=== PATIENT | female | born 1945 | race Caucasian/White ===

== ENCOUNTER 2025-06-25 09:15 | Emergency (ER) | payer MEDICARE, SELFPAY ==
[2025-06-25] VITALS (14 sets, daily range): BP systolic 133–162; BP diastolic 62–79; PULSE 75; RESP 20; TEMP 36.8; O2SAT 99–100
--- NOTE | ~2025-06-25 | CT_ITS ---
CT head without contrast Indication: Status post fall Technique: Serial scans were obtained through the brain without the administration of contrast. Dose reduction technique was used on this scan by utilizing automated exposure control and iterative recon struction technique. The dose-length product (DLP) was 681.00 mGy-cm. Findings: There is no evidence of intracranial hemorrhage, mass lesion, or acute infarct. The ventri cles and subarachnoid spaces are dilated, consistent with mild atrophy. There is no evidence of maria del carmen a, mass effect or midline shift. The visualized paranasal sinuses and mastoid air cells are clear. Impression: No intracranial hemorrhage, mass, or acute infarct. Probable generalized atrophy. Questionable element of normal pressure hydrocephalus. Reviewed, dictated and finalized at location M. Impression: No intracranial hemorrhage, mass, or acute infarct. Probable generalized atrophy. Questionable element of normal pressure hydroceph alus.
--- NOTE | ~2025-06-25 | XR_ITS ---
Clinical Indication: Weakness, shingles PA and lateral views of the chest: Comparison: None Findings: The lungs are clear, without evidence of focal consolidation or pleural effusion. Small stephan cified right hilar lymph nodes are present. Cardiomediastinal silhouette is within normal limits. Bon es and soft tissues are unremarkable. Impression: Clear lungs. Calcified right hilar lymph nodes. Reviewed, dictated and finalized at location . Impression: Clear lungs. Calcified right hilar lymph nodes.
--- OUTSIDE RECORDS SUMMARY | 2025-06-25 10:30 | XMS_ITS | Clinical Summary ---
Author Organization [facility] [address] [facility] lt Address [address] [place] [address] Care Team Providers Care Librarian Special Collections Name Role Phone Dennise Huerta NP Primary Care Provider [phone] Allergies Active Allergy Reactions Criticality Noted Date Comments Pollen Extracts Other (See comments) Low 06/16/2024 Medications hydroCHLOROthia zide (MICROZIDE) 12.5 mg capsule Take 1 capsule (12.5 mg total) by mouth daily Active metoprolol tartrate (LOPRESSOR) 50 mg immediate release tablet Take 1 tablet (50 mg total) by mouth 2 (two) times a day Active amLODIPine (NORVASC) 5 mg tablet Take 1.5 tablets (7.5 mg total) by mouth daily 3 Active aspirin 81 mg enteric coated tablet Take 1 tablet (81 mg total) by mouth daily 3 Active memantine (NAMENDA) 10 mg tablet Take 1 tablet (10 mg total) by mouth 2 (two) times a day Active lidocaine-menth ol 4-1 % adhesive patch,medicated Apply 4 % topically daily as needed Active escitalopram (LEXAPRO) 20 mg tablet Take 1.5 tablets (30 mg total) by mouth daily Active Nystop powder 4 Active levomefolate calcium (L-Methylfolate ) 15 mg tablet Take 1 tablet every day by oral route. Active carbidopa-levod opa (SINEMET) 25-100 mg per tablet TAKE ONE TABLET BY MOUTH THREE TIMES DAILY 90 tablet 4 4 Active acidophilus-pec tin, citrus 100 million cell-10 mg capsule Take by mouth Activ e rivastigmine (EXELON) 9.5 mg/[address] 9.5 mg on the skin daily for 24 hours 30 patch 2 5 Active busPIRone (BUSPAR) 10 mg tablet TAKE ONE TABLET BY MOUTH TWICE DAILY 60 tablet 4 5 Active doxycycline (VIBRAMYCIN) 100 mg capsule Take 1 tablet/capsule (100 mg total) by mouth 2 (two) times a day 20 capsule 5 Active methylPREDNISol one (MEDROL DOSEPACK) 4 mg Dosepack Take as directed on package 1 packet 5 06/29/20 25 Active cetirizine (ZyrTEC) 10 mg tablet Take 1 tablet (10 mg total) by mouth daily 30 tablet 5 07/23/20 25 Active Active Problems Problem Noted Date Diagnosed Date Tremors of nervous system 11/28/2024 Overview (11/28/2024): R sinemet tid for tremors per neurology [facility] clinic Parkinsonism, unspecified Parkinsonism type 11/10 Assessment & Plan (11/28/2024 2:12 PM AIRPORT LOCATION MANAGER): Parkinson like symptoms. Currently on Sinemet. They also have her on an Exelon patch. Depression, recurrent 11/28/2024 Assessment & Plan (11/28/2024 2:12 PM AIRPORT LOCATION MANAGER): Slightly improved today. Continue current medication. Escitalopram 30 mg once daily. BuSpar 7.5 mg once daily. I think she is on the correct medication. I do not wish to make any changes for her today. She has a follow-up with the memory clinic in January. 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 Discussed findings with the patient and her family, recommended compression therapy for any residual swelling or pain, given her underlying Lewy body dementia would not recommend any interventional therapy. Can follow up as needed. Candidal intertrigo 06/30/2023 Allergic rhinitis 08/11/2022 Lewy body dementia without behavioral disturbanc e 06/12/2022 Overview (06/12/2022): Per patient and caregiver, symptoms were 1st noted approximately 1 year ago in July 2021, patient formally diagnosed with Lewy Body dementia in March of 2022 Assessment & Plan (11/28/2024 2:14 PM AIRPORT LOCATION MANAGER): Diagnosed 3 years ago. The last 6 months have been difficult for them. Currently lives in [facility]. Came to see a new PCP today. However they may make the decision to stay with the BOOKING OFFICER at the facility. They do see the [facility] for the dementia. Assessment & Plan (04/26/2024 12:45 PM CDT): Continue donepezil/Aricept and memantine/Namenda. Continue escitalopram/Lexapro 30 mg. Patient states current mood is okay despite answering 5/8 items on the GDS. CS believes she is in good spirits and is involved with support groups, adventist, and friends. Patient may get another vision examination to make sure her glasses are the right prescription. CS to see if patient has more physical therapy/occupational therapy orders. If not, will order more physical therapy and occupational therapy at [place]. Follow-up with Dr. Jimenez scheduled for 01/2025. Assessment & Plan (06/12/2022 4:44 PM CDT): Stable, recently diagnosed Per patient and caregiver, symptoms were 1st noted approximately 1 year ago in July 2021, patient formally diagnosed with Lewy Body dementia in March of 2022 Patient currently on Lexapro 10 mg daily for mood disturbance, as well as Prozac 20 mg daily Will start donepezil 5 mg nightly Patient reports recent weight loss, as well as diarrhea; will follow-up in 2 months to reassess and may increase to 10 mg nightly Hypertension, essential 06/12/2022 Assessment & Plan (11/28/2024 2:15 PM AIRPORT LOCATION MANAGER): Stable. Blood pressure is well-controlled on current medications include metoprolol amlodipine and hydrochlorothiazide Assessment & Plan (07/06/2024 12:12 PM CDT): Stable continue amlodipine 5 mg Assessment & Plan (06/12/2022 4:45 PM CDT): Stable, well controlled; blood pressure at target Continue hydrochlorothiazide 12.5 mg daily, metoprolol 50 mg b.i.d. Anemia 05/28/2022 Assessment & Plan (11/28/2024 2:10 PM AIRPORT LOCATION MANAGER): History of. Orders for labs today. Vitamin D deficiency 05/28/2022 Encounters Date Type Department Care Team Description 06/23/2025 9:44 AM CDT - 06/23/2025 1:51 PM CDT Emergency [facility] Emergency Department [address] [place] [address] Fall, initial encounter (Primary Dx) Discharge Disposition: Discharge to home or self care from Last 3 Months Immunizations Immunization Administration Dates Next Due Influenza, Unspecified 06/12/2022(Deferred: Nohelia ent Refused) Td, adsorbed 07/15/2005 Surgical History Surgery Date Site/Laterality Comments GALLBLADDER SURGERY HYSTERECTOMY Medical History Medical History Date Comments Epilepsy (HCC) Depression Hypertension Family History Medical History Relation Name Comments Heart attack Father Lung cancer Mother Relation Name Status Comments Father Mother Social History Tobacco Use Types Packs/Day Years Used Date Smoking Tobacco: Former Cigarettes Smokeless Tobacco: Never Tobacco Cessation:Counseling Given: No Comments:Stopped smoking in the 1970s PHQ-2 Answer Date Recorded PHQ-2 Total Score (If total score is 3 or more points, staff should administer the PHQ-9) 4 11/28/2024 PHQ-9 Answer Date Recorded PHQ-9 Total Score 15 11/28/2024 Personal Safety Answer Date Recorded Have you ever been in or are you currently in a harmful physical or emotional relationship or is someone making you feel afraid or unsafe? Denies 06/23/2025 Comments Unknown Sex and Gender Information Value Date Recorded Sex Assigned at Not on file Legal Sex Female 1:20 PM CDT Gender Identity Female 04/19/2024 2:36 PM CDT Sexual Orientation Not on file Obstetrics History Last Filed Vital Signs Vital Sign Reading Time Taken Comments Blood Pressure 161/77 06/23/2025 1:44 PM CDT Pulse 52 06/23/2025 1:44 PM CDT Temperature 36.4 C (97.6 F) 06/23/2025 9:50 AM CDT Respiratory Rate 14 06/23/2025 1:44 PM CDT Oxygen Saturation 99% 06/23/2025 1:44 PM CDT Inhaled Oxygen Concentration - - Weight 77.1 kg (170 lb) 06/23/2025 9:47 AM CDT Height 160 cm (5' 3) 01/23/2025 3:33 PM CDT Body Mass Index 30.11 01/23/2025 3:33 PM CDT Plan of Treatment Health Maintenance Due Date Last Done Comments Hepatitis C Screening 1945 Osteoporosis Screening-Bone Density Scan 1945 Hepatitis B Screening 1965 Pneumococcal vaccine 65+ (1 of 1 - PCV) 1997 Zoster Vaccine (1 of 2) 1997 DTaP/Tdap/Td Vaccine (1 - Tdap) 07/16/2005 5 Well Visit 65+ 2012 Influenza Vaccine (#1) 2025 Depression Screening 11/28/2025 11/28/2024, 11/28/2024, 06/12/2022 Fall Risk Assessment 11/28/2025 11/28/2024, 06/12/20 22 Procedures Procedure Name Priority Date/Time Associated Diagnosis Comments CT PELVIS WO CONTRAST ED 06/23/2025 12:[address] CERVICAL SPINE WO CONTRAST ED 06/23/2025 12:[address] FACIAL BONES WO CONTRAST ED 06/23/2025 12:[address] HEAD WO CONTRAST ED 06/23/2025 1 2:09 PM CDT EGFR STAT 06/23/2025 10:28 AM CDT DIFFERENTIAL AUTO STAT 06/23/2025 10: 28 AM CDT SEPSIS LACTATE WITH REFLEX Routine 06/23/2025 10:28 AM CDT COMPREHENSIVE METABOLIC PANEL STAT 06/23/2025 10:28 AM CDT CBC WITH AUTO DIFFERENTIAL STAT 06/23/2025 10:28 AM CDT from Last 3 Months Results * CT Pelvis WO Contrast (06/23/2025 12:09 PM CDT) Anatomical Region Laterality Modality Body N/A Computed Tomogra phy 06/23/2025 1:16 PM CDT Narrative 06/23/2025 1:22 PM CDT EXAM DESCRIPTION: CT PELVIS WO CONTRAST REASON FOR STUDY: Hip trauma, fracture suspected, no prior imaging Fall today, struck face, right eye swelling due to recent insect bite, has right hip pain, hx of dementia TECHNIQUE: CT scan of the pelvis performed without intravenous and without oral contrast using helical scanning technique. Reconstructed coronal and sagittal MPR images reviewed. All images stored on PACS. Automated exposure control was used as a dose optimization technique for this examination. COMPARISON: None available FINDINGS: The sensitivity for detection of solid visceral lesions is diminished without the use of intravenous contrast. URINARY: No visualized abnormality. GI: Not fully included in field of view. No visualized abnormality. PERITONEUM: Not fully included in field of view. No visualized abnormality. RETROPERITONEUM: Not fully included in field of view. No visualized abnormality. REPRODUCTIVE: No significant abnormality. VASCULATURE: Abdominal aorta not fully included in field of view. No visualized abnormality. MUSCULOSKELETAL: No significant abnormality. Moderately severe degenerative changes lumbosacral spine. Moderate changes both hips. OTHER: No other abnormality. IMPRESSION: No acute finding. THIS IS AN ELECTRONICALLY VERIFIED FINAL REPORT 06/23/2025 1:22 PM - Electronically signed by Tunde Thomas M.D. RB: ELENA Report ID: [id number] Reading Location: [id number] Procedure Note Tunde Thomas MD - 06/23/2025 EXAM DESCRIPTION: CT PELVIS WO CONTRAST REASON FOR STUDY: Hip trauma, fracture suspected, no prior imaging Fall today, struck face, right eye swelling due to recent insect bite, has right hip pain, hx of dementia TECHNIQUE: CT scan of the pelvis performed without intravenous and without oral contrast using helical scanning technique. Reconstructedcoronal and sagittal MPR images reviewed. All images stored on PACS. Automated exposure control was used as a dose optimization technique for this examination. COMPARISON: None available FINDINGS: The sensitivity for detection of solid visceral lesions is diminishedwithout the use of intravenous contrast. URINARY: No visualized abnormality. GI: Not fully included in field of view. No visualized abnormality. PERITONEUM: Not fully included in field of view. No visualizedabnormality. RETROPERITONEUM: Not fully included in field of view. No visualized abnormality. REPRODUCTIVE: No significant abnormality. VASCULATURE: Abdominal aorta not fully included in field of view. No visualized abnormality. MUSCULOSKELETAL: No significant abnormality. Moderately severe degenerative changes lumbosacral spine. Moderate changes both hips. OTHER: No other abnormality. IMPRESSION: No acute finding. THIS IS AN ELECTRONICALLY VERIFIED FINAL REPORT 06/23/2025 1:22 PM - Electronically signed by Tunde Thomas M.D. RB: ELENA Report ID: [id number] Reading Location: [place] [address] PROCEDURES Final Result * CT Cervical Spine WO Contrast (06/23/2025 12:09 PM CDT) Anatomical Region Laterality Modality Spine N/A Computed Tomogra phy 06/23/2025 1:01 PM CDT Narrative 06/23/2025 1:27 PM CDT EXAM DESCRIPTION: CT HEAD WO CONTRAST; CT FACIAL BONES WO CONTRAST; CT CERVICAL SPINE WO CONTRAST REASON FOR STUDY: Fall today, struck face, right eye swelling due to recent insect bite, has right hip pain, hx of dementia ; Facial trauma, blunt TECHNIQUE: CT of the head, facial bones and cervical spine without contrast. Images stored on PACS. Automated exposure control was used as a dose optimization technique for this examination. COMPARISON: None Head: No acute intracranial hemorrhage. No evidence of a large vascular territory acute infarction or CT evidence of vasogenic edema. No midline shift or mass effect. The ventricles and subarachnoid spaces are prominent indicating age-appropriate parenchymal volume loss. Scattered mild hypoattenuation in the periventricular and subcortical white matter is nonspecific but can be seen in the setting of chronic small vessel ischemic disease. There are atherosclerotic calcifications of the carotid siphons and V4 segments of the vertebral arteries. There is no acute calvarial fracture. Hyperostosis frontalis interna is noted. Facial bones: Bones: No acute facial bone fracture. Soft tissues: Right preseptal soft tissue swelling is nonspecific but could represent preseptal cellulitis in the appropriate clinical setting. Orbits: The globes are symmetric. Status post cataract surgery. No postseptal soft tissue swelling identified. Paranasal sinuses: Mild mucosal thickening of the ethmoid air cells and right maxillary sinus. Mastoids: No mastoid effusion. Other: No other significant abnormality. Cervical spine: Alignment: Normal. The craniocervical junction is unremarkable. Vertebral bodies: Normal in height without evidence of compression fracture. Intervertebral discs: Multilevel moderate degenerative disc disease with disc space height loss. Facet and uncovertebral joints: Multilevel moderate degenerative uncovertebral and facet arthropathy. Spinal canal: Moderate to severe spinal canal stenosis of C3-C4. Neural foramen: Severe left neural foraminal stenosis C3-C4. Soft tissues: No significant prevertebral edema. Azygous lobe. Left carotid atherosclerotic calcification. IMPRESSION: 1. No acute intracranial process. 2. No acute facial bone fracture. 3. No acute cervical spine fracture. 4. Mild right preseptal soft tissue swelling is nonspecific. No postseptal soft tissue swelling identified. 5. Moderate to severe spinal canal stenosis of C3-C4. THIS IS AN ELECTRONICALLY VERIFIED FINAL REPORT 06/23/2025 1:27 PM - Electronically signed by Miki Duran M.D. MM: MM Report ID: [id number] Reading Location: [id number] Procedure Note Miki Duran MD - 06/23/2025 EXAM DESCRIPTION: CT HEAD WO CONTRAST; CT FACIAL BONES WO CONTRAST; CT CERVICAL SPINE WO CONTRAST REASON FOR STUDY: Fall today, struck face, right eye swelling due torecent insect bite, has right hip pain, hx of dementia ; Facial trauma, blunt TECHNIQUE: CT of the head, facial bones and cervical spine withoutcontrast. Images stored on PACS. Automated exposure control was used as a dose optimization technique for this examination. COMPARISON: None Head: No acute intracranial hemorrhage. No evidence of a large vascular territory acute infarction or CT evidence of vasogenic edema. No midlineshift or mass effect. The ventricles and subarachnoid spaces are prominent indicating age-appropriate parenchymal volume loss. Scattered mild hypoattenuationin the periventricular and subcortical white matter is nonspecific but can be seen in the setting of chronic small vessel ischemic disease. There are atherosclerotic calcifications of the carotid siphons and V4 segments ofthe vertebral arteries. There is no acute calvarial fracture. Hyperostosis frontalis interna isnoted. Facial bones: Bones: No acute facial bone fracture. Soft tissues: Right preseptal soft tissue swelling is nonspecific butcould represent preseptal cellulitis in the appropriate clinical setting. Orbits: The globes are symmetric. Status post cataract surgery. No postseptal soft tissue swelling identified. Paranasal sinuses: Mild mucosal thickening of the ethmoid air cells andright maxillary sinus. Mastoids: No mastoid effusion. Other: No other significant abnormality. Cervical spine: Alignment: Normal. The craniocervical junction is unremarkable. Vertebral bodies: Normal in height without evidence of compressionfracture. Intervertebral discs: Multilevel moderate degenerative disc disease withdisc space height loss. Facet and uncovertebral joints: Multilevel moderate degenerative uncovertebral and facet arthropathy. Spinal canal: Moderate to severe spinal canal stenosis of C3-C4. Neural foramen: Severe left neural foraminal stenosis C3-C4. Soft tissues: No significant prevertebral edema. Azygous lobe. Leftcarotid atherosclerotic calcification. IMPRESSION: 1. No acute intracranial process. 2. No acute facial bone fracture. 3. No acute cervical spine fracture. 4. Mild right preseptal soft tissue swelling is nonspecific. Nopostseptal soft tissue swelling identified. 5. Moderate to severe spinal canal stenosis of C3-C4. THIS IS AN ELECTRONICALLY VERIFIED FINAL REPORT 06/23/2025 1:27 PM - Electronically signed by Miki Duran M.D. MM: MM Report ID: [id number] Reading Location: [place] [address] PROCEDURES Final Result * CT Facial Bones WO Contrast (06/23/2025 12:09 PM CDT) Anatomical Region Laterality Modality Head and Neck N/A Computed Tomogra phy 06/23/2025 1:01 PM CDT Narrative 06/23/2025 1:27 PM CDT EXAM DESCRIPTION: CT HEAD WO CONTRAST; CT FACIAL BONES WO CONTRAST; CT CERVICAL SPINE WO CONTRAST REASON FOR STUDY: Fall today, struck face, right eye swelling due to recent insect bite, has right hip pain, hx of dementia ; Facial trauma, blunt TECHNIQUE: CT of the head, facial bones and cervical spine without contrast. Images stored on PACS. Automated exposure control was used as a dose optimization technique for this examination. COMPARISON: None Head: No acute intracranial hemorrhage. No evidence of a large vascular territory acute infarction or CT evidence of vasogenic edema. No midline shift or mass effect. The ventricles and subarachnoid spaces are prominent indicating age-appropriate parenchymal volume loss. Scattered mild hypoattenuation in the periventricular and subcortical white matter is nonspecific but can be seen in the setting of chronic small vessel ischemic disease. There are atherosclerotic calcifications of the carotid siphons and V4 segments of the vertebral arteries. There is no acute calvarial fracture. Hyperostosis frontalis interna is noted. Facial bones: Bones: No acute facial bone fracture. Soft tissues: Right preseptal soft tissue swelling is nonspecific but could represent preseptal cellulitis in the appropriate clinical setting. Orbits: The globes are symmetric. Status post cataract surgery. No postseptal soft tissue swelling identified. Paranasal sinuses: Mild mucosal thickening of the ethmoid air cells and right maxillary sinus. Mastoids: No mastoid effusion. Other: No other significant abnormality. Cervical spine: Alignment: Normal. The craniocervical junction is unremarkable. Vertebral bodies: Normal in height without evidence of compression fracture. Intervertebral discs: Multilevel moderate degenerative disc disease with disc space height loss. Facet and uncovertebral joints: Multilevel moderate degenerative uncovertebral and facet arthropathy. Spinal canal: Moderate to severe spinal canal stenosis of C3-C4. Neural foramen: Severe left neural foraminal stenosis C3-C4. Soft tissues: No significant prevertebral edema. Azygous lobe. Left carotid atherosclerotic calcification. IMPRESSION: 1. No acute intracranial process. 2. No acute facial bone fracture. 3. No acute cervical spine fracture. 4. Mild right preseptal soft tissue swelling is nonspecific. No postseptal soft tissue swelling identified. 5. Moderate to severe spinal canal stenosis of C3-C4. THIS IS AN ELECTRONICALLY VERIFIED FINAL REPORT 06/23/2025 1:27 PM - Electronically signed by Miki Duran M.D. MM: MM Report ID: [id number] Reading Location: [id number] Procedure Note Miki Duran MD - 06/23/2025 EXAM DESCRIPTION: CT HEAD WO CONTRAST; CT FACIAL BONES WO CONTRAST; CT CERVICAL SPINE WO CONTRAST REASON FOR STUDY: Fall today, struck face, right eye swelling due torecent insect bite, has right hip pain, hx of dementia ; Facial trauma, blunt TECHNIQUE: CT of the head, facial bones and cervical spine withoutcontrast. Images stored on PACS. Automated exposure control was used as a dose optimization technique for this examination. COMPARISON: None Head: No acute intracranial hemorrhage. No evidence of a large vascular territory acute infarction or CT evidence of vasogenic edema. No midlineshift or mass effect. The ventricles and subarachnoid spaces are prominent indicating age-appropriate parenchymal volume loss. Scattered mild hypoattenuationin the periventricular and subcortical white matter is nonspecific but can be seen in the setting of chronic small vessel ischemic disease. There are atherosclerotic calcifications of the carotid siphons and V4 segments ofthe vertebral arteries. There is no acute calvarial fracture. Hyperostosis frontalis interna isnoted. Facial bones: Bones: No acute facial bone fracture. Soft tissues: Right preseptal soft tissue swelling is nonspecific butcould represent preseptal cellulitis in the appropriate clinical setting. Orbits: The globes are symmetric. Status post cataract surgery. No postseptal soft tissue swelling identified. Paranasal sinuses: Mild mucosal thickening of the ethmoid air cells andright maxillary sinus. Mastoids: No mastoid effusion. Other: No other significant abnormality. Cervical spine: Alignment: Normal. The craniocervical junction is unremarkable. Vertebral bodies: Normal in height without evidence of compressionfracture. Intervertebral discs: Multilevel moderate degenerative disc disease withdisc space height loss. Facet and uncovertebral joints: Multilevel moderate degenerative uncovertebral and facet arthropathy. Spinal canal: Moderate to severe spinal canal stenosis of C3-C4. Neural foramen: Severe left neural foraminal stenosis C3-C4. Soft tissues: No significant prevertebral edema. Azygous lobe. Leftcarotid atherosclerotic calcification. IMPRESSION: 1. No acute intracranial process. 2. No acute facial bone fracture. 3. No acute cervical spine fracture. 4. Mild right preseptal soft tissue swelling is nonspecific. Nopostseptal soft tissue swelling identified. 5. Moderate to severe spinal canal stenosis of C3-C4. THIS IS AN ELECTRONICALLY VERIFIED FINAL REPORT 06/23/2025 1:27 PM - Electronically signed by Miki Duran M.D. MM: MM Report ID: [id number] Reading Location: [place] [address] [address] PROCEDURES Final Result * CT Head WO Contrast (06/23/2025 12:09 PM CDT) Anatomical Region Laterality Modality Head and Neck N/A Computed Tomogra phy 06/23/2025 1:01 PM CDT Narrative 06/23/2025 1:27 PM CDT EXAM DESCRIPTION: CT HEAD WO CONTRAST; CT FACIAL BONES WO CONTRAST; CT CERVICAL SPINE WO CONTRAST REASON FOR STUDY: Fall today, struck face, right eye swelling due to recent insect bite, has right hip pain, hx of dementia ; Facial trauma, blunt TECHNIQUE: CT of the head, facial bones and cervical spine without contrast. Images stored on PACS. Automated exposure control was used as a dose optimization technique for this examination. COMPARISON: None Head: No acute intracranial hemorrhage. No evidence of a large vascular territory acute infarction or CT evidence of vasogenic edema. No midline shift or mass effect. The ventricles and subarachnoid spaces are prominent indicating age-appropriate parenchymal volume loss. Scattered mild hypoattenuation in the periventricular and subcortical white matter is nonspecific but can be seen in the setting of chronic small vessel ischemic disease. There are atherosclerotic calcifications of the carotid siphons and V4 segments of the vertebral arteries. There is no acute calvarial fracture. Hyperostosis frontalis interna is noted. Facial bones: Bones: No acute facial bone fracture. Soft tissues: Right preseptal soft tissue swelling is nonspecific but could represent preseptal cellulitis in the appropriate clinical setting. Orbits: The globes are symmetric. Status post cataract surgery. No postseptal soft tissue swelling identified. Paranasal sinuses: Mild mucosal thickening of the ethmoid air cells and right maxillary sinus. Mastoids: No mastoid effusion. Other: No other significant abnormality. Cervical spine: Alignment: Normal. The craniocervical junction is unremarkable. Vertebral bodies: Normal in height without evidence of compression fracture. Intervertebral discs: Multilevel moderate degenerative disc disease with disc space height loss. Facet and uncovertebral joints: Multilevel moderate degenerative uncovertebral and facet arthropathy. Spinal canal: Moderate to severe spinal canal stenosis of C3-C4. Neural foramen: Severe left neural foraminal stenosis C3-C4. Soft tissues: No significant prevertebral edema. Azygous lobe. Left carotid atherosclerotic calcification. IMPRESSION: 1. No acute intracranial process. 2. No acute facial bone fracture. 3. No acute cervical spine fracture. 4. Mild right preseptal soft tissue swelling is nonspecific. No postseptal soft tissue swelling identified. 5. Moderate to severe spinal canal stenosis of C3-C4. THIS IS AN ELECTRONICALLY VERIFIED FINAL REPORT 06/23/2025 1:27 PM - Electronically signed by Miki Duran M.D. MM: MM Report ID: [id number] Reading Location: [id number] Procedure Note Miki Duran MD - 06/23/2025 EXAM DESCRIPTION: CT HEAD WO CONTRAST; CT FACIAL BONES WO CONTRAST; CT CERVICAL SPINE WO CONTRAST REASON FOR STUDY: Fall today, struck face, right eye swelling due torecent insect bite, has right hip pain, hx of dementia ; Facial trauma, blunt TECHNIQUE: CT of the head, facial bones and cervical spine withoutcontrast. Images stored on PACS. Automated exposure control was used as a dose optimization technique for this examination. COMPARISON: None Head: No acute intracranial hemorrhage. No evidence of a large vascular territory acute infarction or CT evidence of vasogenic edema. No midlineshift or mass effect. The ventricles and subarachnoid spaces are prominent indicating age-appropriate parenchymal volume loss. Scattered mild hypoattenuationin the periventricular and subcortical white matter is nonspecific but can be seen in the setting of chronic small vessel ischemic disease. There are atherosclerotic calcifications of the carotid siphons and V4 segments ofthe vertebral arteries. There is no acute calvarial fracture. Hyperostosis frontalis interna isnoted. Facial bones: Bones: No acute facial bone fracture. Soft tissues: Right preseptal soft tissue swelling is nonspecific butcould represent preseptal cellulitis in the appropriate clinical setting. Orbits: The globes are symmetric. Status post cataract surgery. No postseptal soft tissue swelling identified. Paranasal sinuses: Mild mucosal thickening of the ethmoid air cells andright maxillary sinus. Mastoids: No mastoid effusion. Other: No other significant abnormality. Cervical spine: Alignment: Normal. The craniocervical junction is unremarkable. Vertebral bodies: Normal in height without evidence of compressionfracture. Intervertebral discs: Multilevel moderate degenerative disc disease withdisc space height loss. Facet and uncovertebral joints: Multilevel moderate degenerative uncovertebral and facet arthropathy. Spinal canal: Moderate to severe spinal canal stenosis of C3-C4. Neural foramen: Severe left neural foraminal stenosis C3-C4. Soft tissues: No significant prevertebral edema. Azygous lobe. Leftcarotid atherosclerotic calcification. IMPRESSION: 1. No acute intracranial process. 2. No acute facial bone fracture. 3. No acute cervical spine fracture. 4. Mild right preseptal soft tissue swelling is nonspecific. Nopostseptal soft tissue swelling identified. 5. Moderate to severe spinal canal stenosis of C3-C4. THIS IS AN ELECTRONICALLY VERIFIED FINAL REPORT 06/23/2025 1:27 PM - Electronically signed by Miki Duran M.D. MM: MM Report ID: [id number] Reading Location: [place] [address] PROCEDURES Final Result * Sepsis Lactate w/ Reflex (06/23/2025 10:28 AM CDT) Sepsis Lactate 1.2 0.7 - 2.0 mmol/L Blood 06/23/2025 10:2 8 AM CDT 06/23/2025 10:31 AM CDT [facility] LAB BLOOD ORDERABLES Final Resu lt [facility] ([place]) 1 [facility] [place] [address] * eGFR (06/23/2025 10:28 AM CDT) eGFR >90 >=60 mL/min/1. 73 m2 Comment: Interpretive Data Reference Interval Normal >/= 90 mL/min/1.73m2 Mildly decreased* 60 - 89 mL/min/1.73m2 Mildly to moderately decreased 45 - 59 mL/min/1.73m2 Moderately to severely decreased 30 - 44 mL/min/1.73m2 Severely decreased 15 - 29 mL/min/1.73m2 Kidney Failure < 15 mL/min/1.73m2 *Relative to young adult level Estimated glomerular filtration rate is determined by the 2020 CKD-EPI equation recommended by the National Kidney Foundation (A Unifying Approach to GFR Estimation: Recommendations of the NKF-ASK Task Force on Reassessing the Inclusion of Race in Diagnosing Kidney Disease, JASN 2020). The CKD-EPI equation should not be used for patients with unstable renal function and has not been validated in children and those over 70. Current interpretive data was last reviewed 2021. Blood 06/23/2025 10:2 8 AM CDT 06/23/2025 10:31 AM CDT [facility] LAB BLOOD ORDERABLES Final Resu lt [facility] ([place]) [address] [facility] [place] [address] * Differential, auto (06/23/2025 10:28 AM CDT) Neutrophil abs 4.04 1.50 - 6.50 K/cumm Imm gran abs 0.02 0.00 - 0.10 K/cumm [facility] ([place]) Lymphocyte abs 0.94 0.80 - 3.30 K/cumm [facility] ([place]) Monocyte abs 0.61 0.20 - 0.80 K/cumm [facility] ([place]) Eosinophil abs 0.09 0.00 - 0.50 K/cumm [facility] ([place]) Basophil abs 0.06 0.00 - 0.10 K/cumm [facility] ([place]) Neutrophil pct 70.2 % [facility] ([place]) Comment: Interpretive Data Percent cell count reference ranges are not reported, since discordance with absolute values may lead to misinterpretation of CBC data. Current Interpretive Data was last revised on 2018. Imm gran pct 0.3 % [facility] ([place]) Comment: Interpretive Data Percent cell count reference ranges are not reported, since discordance with absolute values may lead to misinterpretation of CBC data. Current Interpretive Data was last revised on 2018. Lymphocyte pct 16.3 % [facility] ([place]) Comment: Interpretive Data Percent cell count reference ranges are not reported, since discordance with absolute values may lead to misinterpretation of CBC data. Current Interpretive Data was last revised on 2018. Monocyte pct 10.6 % [facility] ([place]) Comment: Interpretive Data Percent cell count reference ranges are not reported, since discordance with absolute values may lead to misinterpretation of CBC data. Current Interpretive Data was last revised on 2018. Eosinophil pct 1.6 % [facility] ([place] Comment: Interpretive Data Percent cell count reference ranges are not reported, since discordance with absolute values may lead to misinterpretation of CBC data. Current Interpretive Data was last revised on 2018. Basophil pct 1.0 % [facility] ([place]) Comment: Interpretive Data Percent cell count reference ranges are not reported, since discordance with absolute values may lead to misinterpretation of CBC data. Current Interpretive Data was last revised on 2018. Blood 06/23/2025 10:2 8 AM CDT 06/23/2025 10:31 AM CDT [facility] LAB BLOOD ORDERABLES Final Resu lt [facility] ([place]) 1 [facility] [place] [address] * (ABNORMAL) CBC with auto differential (06/23/2025 10:28 AM CDT) WBC 5.76 3.80 - 9.90 K/cumm Hgb 13.0 11.9 - 15.5 g/dL [facility] Hct 38.1 35.6 - 45.5 % [facility] Plt 158 150 - 400 K/cumm [facility] ([place]) MPV 11.8 9.1 - 12.3 fL [facility] RBC 4.55 3.90 - 5.20 M/cumm [facility] MCV 83.7 81.3 - 96.4 fL [facility] MCH 28.6 27.1 - 33.3 pg [facility] ([place] MCHC 34.1 32.3 - 35.7 g/dL [facility] RDW CV 14.3 11.1 - 14.9 % [facility] RDW SD 43.9 35.7 - 48.1 fL [facility] ([place] NRBC abs 0.02(H) 0.00 - 0.01 K/cumm [facility] ([place]) Blood 06/23/2025 10:2 8 AM CDT 06/23/2025 10:31 AM CDT [facility] LAB BLOOD ORDERABLES Final Resu lt [facility] ([place]) 1 [facility] [place] [address] * (ABNORMAL) Comprehensive metabolic panel (06/23/2025 10:28 AM CDT) Sodium 139 135 - 145 mmol/L [facility] ([place]) Potassium, pl 3.1(L) 3.3 - 4.9 mmol/L [facility] Chloride 97 97 - 110 mmol/L [facility] CO2 29 22 - 32 mmol/L [facility] Anion gap 13 2 - 15 mmol/L [facility] ([place] BUN 12 6 - 25 mg/dL [facility] ([place] Creatinine 0.64 0.60 - 1.10 mg/dL [facility] Glucose 109 70 - 199 mg/dL [facility] ([place] Comment: Interpretive Data Fasting glucose >/= 126 mg/dl is diagnostic for diabetes. Fasting is defined as no caloric intake for at least 8 hours. Fasting glucose between 100 mg/dl to 125 mg/dl is diagnostic of prediabetes. In a patient with classic symptoms of hyperglycemia or hyperglycemic crisis, a random glucose >/= 200 mg/dl is diagnostic for diabetes. In the absence of unequivocal hyperglycemia, results should be confirmed by repeat testing. The classification and Diagnosis of Diabetes Diabetes Care 2021; 46: S19-S40. Current interpretive data was last revised 2022. Calcium 9.8 8.5 - 10.3 mg/dL [facility] Bilirubin, total 0.9 0.1 - 1.2 mg/dL [facility] ([place] Protein, pl 7.2 6.5 - 8.5 g/dL [facility] ([place]) Albumin 4.5 3.5 - 5.0 g/dL [facility] Alk phos 60 40 - 130 Units/L [facility] ALT <5(L) 7 - 45 Units/L [facility] ([place] AST 21 10 - 45 Units/L [facility] ([place]) Comment:Hemolysis present. R esults may be affected. Blood 06/23/2025 10:2 8 AM CDT 06/23/2025 10:31 AM CDT [facility] LAB BLOOD ORDERABLES Final Resu lt [facility] ([place]) 1 [facility] [place] [address] from Last 3 Months Insurance [employer] MEDICARE [id number] [place] [id number] Care Teams Librarian Special Collections Relationship Specialty Start Date End Date Dennise Huerta NP [address] [place] [id number] PCP - General Family Medicine 11/28/24
--- OUTSIDE RECORDS SUMMARY | 2025-06-25 10:30 | XMS_ITS | Continuity of Care Document ---
Author Organization [facility] Address [address] [facility] [address] [place] [address] Phone Care Team Providers Care Bulker Name Role Phone Zack CABALLERO, Dallin Unavailable Unavaila ble Allergies, Adverse Reactions, Alerts Substance Reaction Status Criticality No Known Allergies Active No Inform ation Medications Medication Instructions Dosage Effective Dates (start - stop) Status Comments Aspirin Low Dose (unknown strength) Not Available - Active carbidopa 25 mg tablet take 1 tablet by oral route 4 times every day 25 MG - Active fluoxetine 20 mg capsule take 1 capsule by oral route every day in the morning 20 MG - Active metoprolol tartrate 50 mg-hydrochlorothiazi de 25 mg tablet take 1 tablet by oral route every day 1.00 tablet - Active memantine 10 mg tablet take 1 tablet by oral route 2 times every day 10 MG - Active escitalopram 5 mg tablet take 1 tablet by oral route every day 5 MG - Active amlodipine 5 mg tablet take 1 tablet by oral route every day 5 MG - Active Procedures Procedure Date EYE EXAM, NEW PATIENT Advance Directives Directive Yes / No Effective Date File Name No Information Encounters Encounter Description Practice Location Reason(s) For Visit Diagnoses Date Provider Providers Copied on Encounter [facility], [id number] [place] [address] [address], [place], [place], [id number], [place] tel:[phone] [facility] blurry vision (chief complaint) Presence of intraocular lensDiplopiaDe rmatochalasis of unspecified eye, unspecified eyelidVitreous degeneration, bilateralTear film insufficiency of bilateral lacrimal glandsMild Lewy body dementia, unspecified whether behavioral, psychotic, or mood disturbance or anxietyDementi a in other diseases classified elsewhere, mild, without behavioral disturbance, psychotic disturbance, mood disturbance, and anxiety Zack Zamarripa. [address], [address], [place], [place], [id number], . tel:[phone] Referring Provider: Family Friends A. Family History Family Member Type Diagnosis Age At Onset Mother Problem glaucoma Payers Payer name Insurance type Covered constitution party ID Authoriza tion(s) Medicare Complete Advantage [facility] [id number] Social History Type Description Quantity Date Captured Comments Alcohol Use Details Unknown Caffeine Use Details Unknown Tobacco Use Status Current non-smoker Smoking Status Never smoker Non-Smoking Tobacco Use Details : No Details Available : No Details Available Sex Female Vital Signs Date / Time: Height Weight BMI Pulse Rate Blood Pressure Temperature Respiratory Rate Body Surface Area Head Circumference Head Circ. Percentile Wt./Osvaldo. Percentile BMI percentile Pulse Ox Inhaled Ox 2:29 PM 64.00 in 83.915 kg (185.00 lbs) 31.7 6 kg/m eter (2) Chief Complaint And Reason For Visit From encounter dated 08/21/2022 13:30'. blurry vision (chief complaint). Description: The 77 year old female presents for evaluation of blurry vision. Patient states vision seems a little more blurry Ou for distance and near. Patient has also had some issues with depth perception. Patient using AT's PRN. Pseudophakic OU. Patient has some tunnel vision with going outside in the sun. Reason For Referral Reason For Referral No Information History Of Present Illness Encounter Date Complaint History Of Prese nt Illness blurry vision The 77 year old female presents for evaluation of blurry vision. Patient states vision seems a little more blurry Ou for distance and near. Patient has also had some issues with depth perception. Patient using AT's PRN. Pseudophakic OU. Patient has some tunnel vision with going outside in the sun. Functional Status Date Functional Assessmen t No Information Instructions Date Instruction Additional Infor mation Impression/Plan Related to Prese nce of intraocular lens Impression/Plan Related to Vitre ous degeneration, bilateral Impression/Plan Related to Diplo jing Impression/Plan Related to [place] tochalasis of unspecified eye, unspecified eyelid Impression/Plan Related to Tear film insufficiency of bilateral lacrimal glands Impression/Plan Related to Mild Lewy body dementia, unspecified whether behavioral, psychotic, or mood disturbance or anxiety Assessments Type Assessment Date assessment Presence of intraocular lens Aug impression Presence of intraocular lens: Z9 6.1 assessment Diplopia assessment Dermatochalasis of unspecified e ye, unspecified eyelid assessment Vitreous degeneration, bilateral assessment Tear film insufficiency of bilat eral lacrimal glands impression Vitreous degeneration, bilateral : H43.813 impression Diplopia: H53.2 impression Dermatochalasis of u nspecified eye, unspecified eyelid: H02.839 impression Tear film insufficiency of bilat eral lacrimal glands: H04.123 assessment Mild Lewy body demen tia, unspecified whether behavioral, psychotic, or mood disturbance or anxiety assessment Dementia in other di seases classified elsewhere, mild, without behavioral disturbance, psychotic disturbance, mood disturbance, and anxiety impression Mild Lewy body demen tia, unspecified whether behavioral, psychotic, or mood disturbance or anxiety: G31.83. - recent falls/ imbalance Patient Care Teams Name Effective Dates (start - stop) Status Members No Information
--- OUTSIDE RECORDS SUMMARY | 2025-06-25 10:30 | XMS_ITS | Continuity of Care Document ---
Author Organization [facility] Address [address] [place] [address] Phone Care Team Providers Care Scoop Filler Name Role Phone Salvador Villafuerte MD Unavailable Unavailable Allergies, Adverse Reactions, Alerts Substance Reaction Status Criticality zinc Active No Information latex Active No Information Medications Medication Instructions Dosage Effective Dates (start - stop) Status Comments triamterene 37.5 mg-hydrochlorothiazi de 25 mg tablet take 1 tablet by oral route every day 1.00 tablet - Active metoprolol tartrate 50 mg tablet take 1 tablet by oral route 2 times every day with meals 50 MG - Active fluoxetine 20 mg tablet one every other day - Active aspirin 81 mg tablet,delayed release take 1 tablet by oral route every day 81 MG - Active Vitamin D3 2,000 unit tablet one daily - Active naproxen 500 mg tablet take 1 tablet by oral route 2 times every day with food 500 MG - Active Procedures Procedure Date DXA BONE DENSITY AXIAL OFFICE/OUTPATIENT VISIT, NEW C-REACTIVE PROTEIN RBC SED RATE, AUTOMATED ASSAY OF FERRITIN ASSAY OF BLOOD/URIC ACID ROUTINE VENIPUNCTURE Advance Directives Directive Yes / No Effective Date File Name No Information Encounters Encounter Description Practice Location Reason(s) For Visit Diagnoses Date Provider Providers Copied on Encounter [facility] [place], [address] [place], [place], [id number], [place] tel:[phone] [facility] No Information [address] Franco. [address] , [place], [place], [id number] . tel:[phone] Referring Provider: Vania Madrid, [address] [facility], [place], [address]. tel:[phone] OFFICE/OUTPA TIENT VISIT, [facility], [address], [place], [place], [id number], tel:[phone] [facility] ref by Dr Pruitt (chief complaint) here for pain that started around her left knee (chief complaint) has seen ortho (chief complaint) Other retirement (current) drug therapyPolyar thritisPain in left kneeLow back painRash 5 Pat Wilks. [address] , [place], [place], [id number] . tel:[phone] Referring Provider: Vania Madrid, [address] [facility], [place], [address]. tel:[phone] Family History Family Member Type Diagnosis Age At Onset Problem (finding) Family history of hyper tension Payers Payer name Insurance type Covered democrat ID Authoriza titae(s) [facility] [id number] CI [id number] Medicare [id number] Social History Type Description Quantity Date Captured Comments Sex Female Smoking Status No Information Sexual Orientation Straight or heterosexual Chief Complaint And Reason For Visit No Information Reason For Referral Reason For Referral No Information History Of Present Illness Encounter Date Complaint History Of Prese nt Illness has seen ortho here for pain that s tarted around her left knee ref by Dr Pruitt Functional Status Date Functional Assessmen t No Information Instructions Date Instruction Additional Infor mation No Information Assessments Type Assessment Date No Information Patient Care Teams Name Effective Dates (start - stop) Status Members No Information
[2025-06-25 12:05] LABS: Hematocrit 39.5 % (37.0-47.0); Hemoglobin 14.0 g/dL (12.0-15.0); Immature Granulocyte Percent A 0.4 % (0-0.5); Lymphocytes Absolute Auto 2.11 K/mm3 (0.9-3.2); Mean Corpuscular HGB Conc 35.4 g/dl (32-36); Mean Corpuscular Hemoglobin 28.5 pg (26-34); Mean Corpuscular Volume 80.3 fl (80-100); Nucleated Red Blood Cells Absolute Auto 0.000 K/mm3 (0.0-0.012); Nucleated Red Blood Cells Perc 0.0 % (0.0-0.2); Platelet Count Result 228 k/mm3 (150-375); Red Blood Count 4.92 M/mm3 (4.2-5.4); White Blood Count 7.2 K/mm3 (4.5-10.0)
[2025-06-25 12:11] LABS: Add Urine Microscopic? YES; Appearance Urine Clear (Clear); Glucose Urine UA Negative (Negative); Leukocyte Esterase Ur Trace LEU/UL (Negative); Nitrate Urine Negative (Negative); Non Pathogenic Casts 0-2; Specific Grav Ur 1.012 (1.001-1.035)
[2025-06-25 12:26] LABS: Alanine Aminotransferase 14 U/L (6-35); Albumin Level 4.6 g/dL (3.5-5.1); Alkaline Phosphatase 66 U/L (38-126); Anion Gap 13 mmol/L (4-12); Aspartate Amino Transferase 30 U/L (14-36); Bilirubin,Total 1.3 mg/dL (0.2-1.3); Blood Urea Nitrogen 21 mg/dL (7-17); Calcium 9.7 mg/dL (8.4-10.2); Carbon Dioxide 27 mmol/L (22-30); Chloride 94 mmol/L (98-107); Estimated CRCL calculation 49 ml/min; Estimated Glomerular Filt Rate > 60; Glucose 112 mg/dL (65-110); Potassium 2.6 mmol/L (3.4-5.0); Sodium 134 mmol/L (137-145); Total Protein 7.9 g/dL (6.3-8.2)
--- NOTE | 2025-06-25 12:49 | ED_ITS ---
HPI - General Adult General Chief complaint: Fall Stated complaint: AMS, falls Time Seen by Provider: 06/25/25 10:05 History of Present Illness HPI narrative: Patient is a 79-year-old female who presents ER after having a fall last night. This is her 2nd fall in last week. [facility] concerned patient may have an infection as her temperature has been low-grade. Patient was seen earlier in the week at [facility] and had a CT scan for a similar-type fall. Patient reports 5 days ago a house fly flew into her eye ball and then she developed a rash to her nose and face. It is mildly pruritic. No nausea vomiting. No productive cough. No urinary symptoms. Related Data Allergies Allergy/AdvReac Type Severity Reaction Status Date / Time No Known Allergies Allergy Verified 06/25/25 09:26 Review of Systems 2 Review of Systems: All systems reviewed & are unremarkable except as noted in HPI and below Constitutional: Constitutional: Reports no additional constitutional complaints Cardiovascular: Cardiovascular: Reports no additional cardiovascular complaints Respiratory: Respiratory: Reports no additional respiratory complaints Gastrointestinal: Gastrointestinal: Reports no additional gastrointestinal complaints Integumentary/Breasts: Skin/Breast: Reports system reviewed and no additional complaints, except as docu PMFSH Past Medical History Medical History (Updated 06/25/25 @ 14:04 by Thee Vizcarra MD) Hyperlipidemia Hypertension Lewy body dementia Exam 2 Narrative: GENERAL: Frail-appearing, well-nourished, and in no acute distress. HEAD: Normocephalic, atraumatic. EYES: PERRL and EOMI. Scleral injection of the right eye with mild chemosis. Conjunctiva inflamed as well. Mild periorbital redness. ENT: Mucous membranes moist. Sorenson sign of nose with zoster type rash moving along the right nasal bridge towards the eye. NECK: Supple. CHEST: Clear to auscultation. No respiratory distress. HEART: Regular rate and rhythm. Normal peripheral pulses. ABDOMEN: Soft, nontender, nondistended. EXTREMITIES: Normal range of motion. No edema. SKIN: Warm, dry, no rash. NEURO: Alert and oriented x3. PSYCH: Normal mood and affect. Course Course Emergency Course: Patient resting comfortably. Her and her family have been educated on the diagnosis and treatment plan. Patient accepted to transfer to [facility]. Discussed with Ophthalmology Dr. Anderson, and ER physician Dr. Dickens. Patient has received oral potassium replacement and IV acyclovir. Ayaz-Pen would not work to measure intra-ocular pressures. Vital Signs Vital signs: Vital Signs Temperature 98.2 F 06/25/25 09:17 Pulse Rate 75 06/25/25 09:17 Respiratory Rate 20 06/25/25 09:17 Blood Pressure 133/74 06/25/25 09:17 Pulse Oximetry 100 06/25/25 09:17 Oxygen Delivery Room Air 06/25/25 09:17 Temperature 98.2 F 06/25/25 09:17 Pulse Rate 75 06/25/25 09:17 Respiratory Rate 20 06/25/25 09:17 Blood Pressure 133/74 06/25/25 09:17 Pulse Oximetry 100 06/25/25 09:17 Oxygen Delivery Room Air 06/25/25 09:17 Medical Decision Making Vital Signs Vital Signs: Vital Signs Temperature 98.2 F 06/25/25 09:17 Pulse Rate 75 06/25/25 09:17 Respiratory Rate 20 06/25/25 09:17 Blood Pressure 133/74 06/25/25 09:17 Pulse Oximetry 100 06/25/25 09:17 Oxygen Delivery Room Air 06/25/25 09:17 Temperature 98.2 F 06/25/25 09:17 Pulse Rate 75 06/25/25 09:17 Respiratory Rate 20 06/25/25 09:17 Blood Pressure 133/74 06/25/25 09:17 Pulse Oximetry 100 06/25/25 09:17 Oxygen Delivery Room Air 06/25/25 09:17 Lab Data 06/25/25 11:58 06/25/25 11:58 Labs: Lab Results 06/25/25 Range/Units 11:58 WBC 7.2 (4.5-10.0) K/mm3 RBC 4.92 (4.2-5.4) M/mm3 Hgb 14.0 (12.0-15.0) g/dL Hct 39.5 (37.0-47.0) % MCV 80.3 (80-100) fl MCH 28.5 (26-34) pg MCHC 35.4 (32-36) g/dl RDW 14.1 (11.5-14.5) % Plt Count 228 (150-375) k/mm3 MPV 11.2 H (7.4-10.4) fl Immature Gran % (Auto) 0.4 (0-0.5) % Neut % (Auto) 56.1 (45.5-73.1) % Lymph % (Auto) 29.2 (18.3-44.2) % [place] % (Auto) 13.4 H (2.6-8.5) % Eos % (Auto) 0.3 (0-4.4) % Baso % (Auto) 0.6 (0.2-1.2) % Lymph # (Auto) 2.11 (0.9-3.2) K/mm3 [place] # (Auto) 1.0 H (0.1-0.6) K/mm3 Eos # (Auto) 0.0 (0-0.3) K/mm3 Baso # (Auto) 0.0 (0.0-0.1) K/mm3 Abs Immat Gran (auto) 0.03 (0.00-0.031) K/mm3 Absolute Neuts (auto) 4.1 (1.3-6.7) K/mm3 Absolute Nucleated RBC 0.000 (0.0-0.012) K/mm3 Nucleated RBC % 0.0 (0.0-0.2) % Sodium 134 L (137-145) mmol/L Potassium 2.6 L* (3.4-5.0) mmol/L Chloride 94 L (98-107) mmol/L Carbon Dioxide 27 (22-30) mmol/L Anion Gap 13 H (4-12) mmol/L BUN 21 H (7-17) mg/dL Creatinine 0.75 (0.7-1.0) mg/dL Estim Creat Clear Calc 49 ml/min Estimated GFR > 60 (59 - ) Glucose 112 H (65-110) mg/dL Calcium 9.7 (8.4-10.2) mg/dL Total Bilirubin 1.3 (0.2-1.3) mg/dL AST 30 (14-36) U/L ALT 14 (6-35) U/L Alkaline Phosphatase 66 (38-126) U/L Total Protein 7.9 (6.3-8.2) g/dL Albumin 4.6 (3.5-5.1) g/dL Urine Color Yellow (Yellow) Urine Appearance Clear (Clear) Urine pH 7.0 (5.0-9.0) Ur Specific [place] 1.012 (1.001-1.035) Urine Protein Trace (Negative) mg/dL Urine Glucose (UA) Negative (Negative) mg/dL Urine Ketones 1+ H (Negative) mg/dL Ur Blood (Man) Negative (Negative) Urine Nitrate Negative (Negative) Urine Bilirubin Negative (Negative) Urine Urobilinogen 1.0 (<2.0) mg/dL Leukocyte Esterase Rfl Trace H (Negative) DAVID/UL Urine RBC 0-2 (0-2) /hpf Urine WBC 0-5 (0-3) /hpf Ur Squamous Epith Cells Occasional (Few) /hpf Urine Bacteria None seen /hpf Urine Casts 0-2 Imaging Data Radiologist's impression: ITS Impressions Head CT 06/25/25 11:32 Impression: No intracranial hemorrhage, mass, or acute infarct. Probable generalized atrophy. Questionable element of normal pressure hydrocephalus. Chest X-Ray 06/25/25 11:40 Impression: Clear lungs. Calcified right hilar lymph nodes. Discharge Plan Discharge Clinical Impression: Herpes zoster ophthalmicus, Hypokalemia Patient Disposition: Acute Care Hospital Condition: Stable Patient Language: Kazakh Follow-up/Referrals: Sarai Bello, [employer] [Primary Care Provider] -
[2025-06-25] MEDS: POTASSIUM CHLORIDE 20 MEQ ER TABLET 40 MEQ PO (12:56)
--- NOTE | 2025-06-25 13:00 | PC.NURSE ---
spoke with dave jose inglewood at 1230 and gave update to plan of care
[2025-06-25] MEDS: ACYCLOVIR SODIUM IVPB 800 MG in DEXTROSE 5% IN WATER 250 ML 266 MG IVPB (14:13)
--- NOTE | 2025-06-25 14:56 | PC.NURSE ---
called [facility] and spoke to Alvin GERARDO and updated to plan to transfer the patient
== END 2025-06-25 15:43 | disposition short-term general hospital (02) ==
PROVIDERS: Emergency Provider Emergency Medicine; PCP Nurse Practitioner Family
DX: B02.30 Zoster ocular disease, unspecified (principal); E87.6 Hypokalemia
CPT/HCPCS: 36415; 70450; 71046; 80053; 81001; 85025; 99285; A9270; J0133; J7060